=== PATIENT | female | born 1985 | race African-American/Black ===

== ENCOUNTER 2016-08-16 16:05 | Inpatient (IN) | payer OTHER ==
[~2016-08-16] VITALS: Ht 162.6 cm; Wt 85.0 kg
[2016-08-16] VITALS (21 sets, daily range): BP systolic 123–171; BP diastolic 58–98
[2016-08-16] MEDS ORDERED: VALT500T PO (16:34)
[2016-08-16] MEDS ORDERED: PRENTAB9 PO (16:34)
[2016-08-16 17:55] LABS: MEAN CORPUSCULAR HEMOGLOBIN 30.4 pg (27.0-33.0); MEAN CORPUSCULAR HGB CONC 33.4 g/dl (32.0-36.5); MEAN CORPUSCULAR VOLUME 91.2 fl (80.0-96.0); RED CELL DISTRIBUTION WIDTH 14.2 % (11.5-14.5); WHITE BLOOD COUNT 10.4 K/mm3 (4.0-10.0)
--- NOTE | 2016-08-16 20:30 | IPNPDOC ---
Text Note Date of Service The patient was seen on 08/16/16. NOTE Assumed care from WINIFRED Alvarez at 1930. Patient very uncomfortable, desiring epidural. Cat I FHRT, abnormal ctx pattern with one large/strong ctx every 7 min or so At last SCE, reported /-1. Just in room now, pt endorsed loss of fluid and has leakage consistent with SROM - clear/bloody. No check at this time. Will proceed with epidural and continue to evaluate ctx pattern. If does not normalize with the ROM and relaxation provided by epidural, will consider starting pitocin. Safe to proceed. Dr. Alena Lal MD VS,Raul, I+O VS, Raul, I+O Laboratory Tests 08/16/16 17:35 Red Blood Count 3.97 L, Mean Corpuscular Volume 91.2, Mean Corpuscular Hemoglobin 30.4, Mean Corpuscular Hemoglobin Concent 33.4, Red Cell Distribution Width 14.2 Vital Signs Date Time Temp Pulse Resp B/P (MAP) Pulse Ox O2 Delivery O2 Flow Rate FiO2 08/16/16 19:35 99.6 95 149/98 (115) 08/16/16 16:29 20 ALENA LAL MD Aug 16, 2016 20:30
[2016-08-16] MEDS ORDERED: FENTANYL 2MCG/ML ROPIVACAINE 0.2% IN 0.9% NACL 200ML IVBAG As Ordered ONE (20:47)
[2016-08-16] MEDS ORDERED: OXYTOCIN 30 UNITS IN 0.9% NaCl 500ML IV BAG (J2590) As Ordered ONE (20:48)
[2016-08-16 20:49] LABS: ALBUMIN 2.7 GM/DL (3.2-5.2); ALBUMIN/GLOBULIN RATIO 0.69 (1.00-1.93); ALKALINE PHOSPHATASE 255 U/L (45-117); ALT/SGPT 19 U/L (12-78); ANION GAP 4 MEQ/L (8-16); AST/SGOT 14 U/L (15-37); BILIRUBIN,TOTAL 0.2 MG/DL (0.2-1.0); BLOOD UREA NITROGEN 7 MG/DL (7-18); CARBON DIOXIDE LEVEL 27 MEQ/L (21-32); CHLORIDE LEVEL 107 MEQ/L (98-107); CREATININE FOR GFR 0.65 MG/DL (0.55-1.02); GLOMERULAR FILTRATION RATE > 60.0 (>60); GLUCOSE, FASTING 107 MG/DL (70-105); POTASSIUM SERUM 4.2 MEQ/L (3.5-5.1); SODIUM LEVEL 138 MEQ/L (136-145); TOTAL PROTEIN 6.6 GM/DL (6.4-8.2)
[2016-08-16] MEDS ORDERED: NALOXONE INJ 0.4 MG/1 ML VIAL (J2310) IV PRN (22:15)
[2016-08-16] MEDS ORDERED: LACTATED RINGER'S 1000 ML IV PRN (22:15)
[2016-08-16] MEDS ORDERED: FENTANYL/ROPIVACAINE/NACL BAG 200 ML EPIDURAL SCH (22:15)
[2016-08-16] MEDS ORDERED: EPIDURAL COMMENT XX SCH (22:15)
[2016-08-16] MEDS ORDERED: EPIDURAL/PCA KEYS XX PRN (22:15)
[2016-08-16] MEDS ORDERED: ePHEDrine SULFATE 25 MG/5 ML(5MG/ML) SYRINGE IV PRN (22:15)
[2016-08-16] MEDS ORDERED: ONDANSETRON 4MG/2ML VIAL (J2405) IV PRN (22:15)
[2016-08-16] MEDS ORDERED: REFRIGERATOR IV KEYS XX PRN (22:15)
[2016-08-16] MEDS ORDERED: diphenhydrAMINE INJ 50MG/ML VIAL (J1200) IV PRN (22:15)
--- NOTE | 2016-08-16 23:51 | IPNPDOC ---
Text Note Date of Service The patient was seen on 08/16/16. NOTE Patient now comfortable with epidural. Cat I FHRT until SCE when patient was on her back, then had 2 deep late decelerations which recovered completely with O2, lateral repositioning and 300ml LR bolus. SCE now 4/80/-2. Ctx q2min. IUPC placed since patient admitted 8hr ago and only 2cm of change. Still clear fluid. Will continue to monitor closely. If continued FHRT Cat I and ctx do not meet adequate MVUs, will begin low dose pitocin. Safe to proceed. Dr. Alena Lal MD VS,Raul, I+O VS, Raul I+O Laboratory Tests 08/16/16 17:35 Red Blood Count 3.97 L, Mean Corpuscular Volume 91.2, Mean Corpuscular Hemoglobin 30.4, Mean Corpuscular Hemoglobin Concent 33.4, Red Cell Distribution Width 14.2, Calcium Level 9.0, Aspartate Amino Transf (AST/SGOT) 14 L, Alanine Aminotransferase (ALT/SGPT) 19, Alkaline Phosphatase 255 H, Total Bilirubin 0.2, Total Protein 6.6, Albumin 2.7 L Vital Signs Date Time Temp Pulse Resp B/P (MAP) Pulse Ox O2 Delivery O2 Flow Rate FiO2 08/16/16 22:59 92 130/80 (97) 08/16/16 22:30 98.3 08/16/16 21:58 20 100 Non-RebreALENA King MD Aug 16, 2016 23:50
[2016-08-17] VITALS (13 sets, daily range): BP systolic 99–139; BP diastolic 50–87
[2016-08-17] MEDS ORDERED: OXYTOCIN DRIP 30 UNITS in APPROPRIATE DILUENT 1 EA IV SCH ×2
--- NOTE | 2016-08-17 01:06 | IPNPDOC ---
Text Note Date of Service The patient was seen on 08/17/16. NOTE Called to room by RN for late FHR decelerations and tachycardia. SCE: /-1. FSE placed. IUPC now shows meconium. amnioinfusion 500ml ordered. Patient has O2 on, left lateral position. With initiation of amnioinfusion, late decelerations seem so far to have resolved. tachycardia 170's continues, but patient is afebrile, so no formal dx of chorio yet. Good FHR variability still. Will continue to keep a close eye to tracing. Safe to proceed. Dr. Alena Lal MD VS,Raul, I+O VS, Raul, I+O Laboratory Tests 08/16/16 17:35 Red Blood Count 3.97 L, Mean Corpuscular Volume 91.2, Mean Corpuscular Hemoglobin 30.4, Mean Corpuscular Hemoglobin Concent 33.4, Red Cell Distribution Width 14.2, Calcium Level 9.0, Aspartate Amino Transf (AST/SGOT) 14 L, Alanine Aminotransferase (ALT/SGPT) 19, Alkaline Phosphatase 255 H, Total Bilirubin 0.2, Total Protein 6.6, Albumin 2.7 L Vital Signs Date Time Temp Pulse Resp B/P (MAP) Pulse Ox O2 Delivery O2 Flow Rate FiO2 08/16/16 23:22 98.5 76 123/58 (79) 08/16/16 21:58 20 100 Davina-ALENA Maynard MD Aug 17, 2016 01:06
--- NOTE | 2016-08-17 02:23 | IPNPDOC ---
Text Note Date of Service The patient was seen on 08/17/16. NOTE Continued Cat II tracing now with less variability, late decelerations with >50 % of ctx SCE . Patient counseled/consented for PLTCS for NRFHT. Consent form signed. All questions answered. 2g IV anceph and 500mg IV azithromycin for pre-op abx prophylaxis. Dr. Yeung called to attend delivery in the setting of meconium and NRFHT. Will proceed to OR when anesthesia and team are ready. Dr. Vanessa Lal MD MelroseAndre LIEBERMAN VS,Raul, I+O VS, Raul I+O Laboratory Tests 08/16/16 17:35 Red Blood Count 3.97 L, Mean Corpuscular Volume 91.2, Mean Corpuscular Hemoglobin 30.4, Mean Corpuscular Hemoglobin Concent 33.4, Red Cell Distribution Width 14.2, Calcium Level 9.0, Aspartate Amino Transf (AST/SGOT) 14 L, Alanine Aminotransferase (ALT/SGPT) 19, Alkaline Phosphatase 255 H, Total Bilirubin 0.2, Total Protein 6.6, Albumin 2.7 L Vital Signs Date Time Temp Pulse Resp B/P (MAP) Pulse Ox O2 Delivery O2 Flow Rate FiO2 08/17/16 01:51 99.6 97 18 99/50 (66) 08/16/16 21:58 100 VANESSA Gaona MD Aug 17, 2016 02:23
[2016-08-17] MEDS ORDERED: AZITHROMYCIN INJ 500 MG, VIAL MATE ADAPTER 1 EACH in D5W 250 ML IV ONE (02:30)
[2016-08-17] MEDS ORDERED: TERBUTALINE SULFATE 1 MG/ML VIAL (J3105) SC ONE (02:30)
[2016-08-17] MEDS ORDERED: BICITRA 30ML SOLN UDC PO ONE (02:30)
[2016-08-17] MEDS ORDERED: LIDOCAINE 2% INJ 100 MG/5 ML SDV (FOR ANES.) As Ordered ONE ×2 (02:58→03:53)
[2016-08-17] MEDS ORDERED: OXYTOCIN INJ 10 UNITS/ML VIAL (J2590) As Ordered ONE (03:00)
[2016-08-17] MEDS ORDERED: ONDANSETRON 4MG/2ML VIAL (J2405) As Ordered ONE (03:29)
[2016-08-17] MEDS ORDERED: KETOROLAC 60 MG/2 ML VIAL (J1885) As Ordered ONE (03:29)
[2016-08-17] MEDS ORDERED: MORPHINE PRES-FREE INJ 10 MG/10 ML VIAL (J2274) As Ordered ONE (03:34)
[2016-08-17 03:53] LABS: CORD GAS ABE V -5.1; CORD GAS HCO3 V 21.2 MEQ/L; CORD GAS O2 SAT V 57.2 %; CORD GAS PCO2 V 43.9 mmHg; CORD GAS PH V 7.301 UNITS; CORD GAS PO2 V 25.2 mmHg; CORD GAS SBC V 19.4 MEQ/L; CORD GAS TCO2 V 22.5 MEQ/L
[2016-08-17 03:54] LABS: CORD GAS ABE A -4.4; CORD GAS HCO3 A 22.7 MEQ/L; CORD GAS PCO2 A 49.6 mmHg; CORD GAS PH A 7.278 UNITS; CORD GAS PO2 A 28.6 mmHg; CORD GAS SBC A 20.1 MEQ/L; CORD GAS TCO2 A 24.2 MEQ/L
[2016-08-17] MEDS ORDERED: fentaNYL 100 MCG/2 ML INJECTION (J3010) As Ordered ONE (04:07)
[2016-08-17] MEDS ORDERED: ONDANSETRON 4MG/2ML VIAL (J2405) IV PRN ×2 (04:25→05:15)
[2016-08-17] MEDS ORDERED: METOCLOPRAMIDE INJ 10MG/2ML VIAL (J2765) IV PRN ×2 (04:25→05:15)
[2016-08-17] MEDS ORDERED: NALOXONE INJ 0.4 MG/1 ML VIAL (J2310) IV PRN ×2 (04:25)
[2016-08-17] MEDS ORDERED: NALBUPHINE HCL 10 MG/ML AMP (J2300) IV PRN (04:25)
[2016-08-17] MEDS: LR 1,000 ML IV SCH ×2 (04:39→20:15)
[2016-08-17] MEDS ORDERED: RHOGAM 300 MCG (1500 IU) INJ (J2790) IM SCH (04:45)
[2016-08-17] MEDS ORDERED: PERCOCET 5MG/325MG TAB PO PRN (04:45)
[2016-08-17] MEDS ORDERED: MEASLES,MUMPS,RUBELLA VACCINE INJ (MMR-II) (90707) SC SCH (04:45)
[2016-08-17] MEDS ORDERED: MEPERIDINE INJ 25 MG/ML VIAL (J2175) As Ordered ONE (04:45)
[2016-08-17] MEDS ORDERED: KETOROLAC 30 MG/ML VIAL (J1885) IV PRN (05:15)
[2016-08-17] MEDS ORDERED: fentaNYL 100 MCG/2 ML INJECTION (J3010) IV PRN (05:15)
[2016-08-17] MEDS ORDERED: MEPERIDINE INJ 25 MG/ML VIAL (J2175) IV ONE (05:15)
[2016-08-17] MEDS ORDERED: LR 1,000 ML IV SCH (05:15)
[2016-08-17] MEDS: PERCOCET 5MG/325MG TAB PO PRN ×3 (06:48→20:15)
[2016-08-17] MEDS: DOCUSATE SODIUM 100 MG CAP PO SCH ×2 (08:38→20:14)
[2016-08-17] MEDS: PRENATAL VITAMIN TAB PO SCH (08:40)
--- NOTE | 2016-08-17 09:05 | RO ---
DATE OF PROCEDURE: 08/17/2016 PREPROCEDURE DIAGNOSES: 1. Term intrauterine , active labor. 2. Non-reassuring heart tracing remote from delivery. POSTPROCEDURE DIAGNOSES: 1. Term intrauterine , active labor. 2. Non-reassuring heart tracing remote from delivery. 3. Meconium. SURGEON: Vanessa Lal MD MANAGER AUDIO: WINIFRED Em. CLINICAL SERVICE: Obstetrics. MATERIAL FORWARDED TO THE LAB FOR EXAMINATION: Cord gases: pH arterial 7.278, base excess -4.4, pH venous 7.301, base excess -5.1. INDICATION FOR OPERATION: Tere is a 31-year-old 1, now P1-0-0-1 who was admitted to labor and delivery for active labor. She developed a persistent category 2 heart rate tracing remote from delivery with heart rate decelerations with greater than 50% of the contractions and loss of variability over time. She was counseled for section. DESCRIPTION OF FINDINGS: Meconium noted on entry into the uterus. Female infant in cephalic presentation. 7 and 8. Weight 3000 grams or 6 pounds 10 ounces. Normal appearing uterus, fallopian tubes and ovaries. INFECTION CLASSIFICATION: 2. ESTIMATED BLOOD LOSS: 600 mL. IV FLUIDS: 1 liter of lactated ringers. URINE OUTPUT: 100 mL of clear yellow urine. OPERATION PERFORMED: Primary low transverse section. DESCRIPTION OF OPERATION: After obtaining informed consent, Tere was taken to the operating room. She had an epidural previously placed and she was comfortable. A Persaud catheter and bilateral sequential compression devices were in place. She was prepped and draped in normal sterile fashion in dorsal supine position with a left lateral tilt. She received 2 grams of IV Ancef and 500 mg of IV azithromycin prophylactically. Time out was performed to confirm patient name, date of , procedure and indication. The team was in agreement. Epidural anesthesia was found to be adequate using Allis clamp. Pfannenstiel skin incision was made with a scalpel and carried through to the underlying layer of fascia. The fascia was incised in the midline and the incision was extended laterally with Pope scissors. Superior and inferior aspects of the facial incision were grasped with Beverly clamps, elevated and the underlying rectus muscles were dissected off bluntly and sharply. Peritoneum was entered digitally and the rectus muscles were in the midline. Peritoneal incision was extended superiorly and inferiorly with good visualization of the bladder. Bladder blade was inserted. The vesicouterine peritoneum was identified, grasped with pickups and entered sharply with Metzenbaum scissors. The incision was extended laterally and the bladder flap was created digitally. Bladder blade was reinserted and the lower uterine segment was scored in a transverse fashion with a scalpel. Uterus was entered bluntly and the incision was extended with traction. Bladder blade was removed and the 's head was elevated to the level of the incision. Fundal pressure was applied and the head was delivered atraumatically in the OA position. Anterior shoulder, posterior shoulder and corpus were delivered without difficulty. Nose and mouth were suctioned with bulb suction and the cord was clamped times two and cut. The infant was handed off to the awaiting wood milling machine tender and team. Cord gases were obtained. Placenta was removed with traction on the cord and uterine massage and the uterus was exteriorized and cleared of all clot and debris. Uterine incision was repaired with #0 Vicryl suture in a running locking fashion and a second layer of #0 Monocryl suture was used to close the hysterotomy incision in an imbricating fashion. Uterine incision was inspected. Hemostasis was noted. Posterior cul-de-sac was irrigated and the uterus was returned to the abdomen. Gutters were cleared of all clot. Hemostasis noted. Peritoneum was closed using #3-0 Vicryl suture in a running fashion. Fascia was reapproximated using #0 Vicryl suture in a running fashion. Subcutaneous tissue was copiously irrigated. Marilia's fascia was reapproximated using #3-0 Vicryl suture in a running fashion in two layers. Skin edges were reapproximated using #4-0 Monocryl suture. Incision was cleaned using a wet lap and dried with a dry lap. Steri-Strips were applied in the usual fashion perpendicular to Pfannenstiel incision. Pressure dressing was applied over the top. Vagina was cleared of all blood clot without active bleeding noted. The fundus was firm at the umbilicus -1 cm. All counts were correct times two. Procedure was without complication. The patient tolerated the procedure well. She was taken to the recovery room on labor and delivery in stable condition. KATARINA
[2016-08-17] MEDS: KETOROLAC 30 MG/ML VIAL (J1885) IV SCH ×3 (10:00→22:43)
[2016-08-18 02:14] VITALS: BP 124/72
[2016-08-18] MEDS: KETOROLAC 30 MG/ML VIAL (J1885) IV SCH (03:54)
[2016-08-18] MEDS: PERCOCET 5MG/325MG TAB PO PRN ×3 (04:05→16:57)
[2016-08-18 05:36] VITALS: BP 132/63
[2016-08-18 07:31] LABS: MEAN CORPUSCULAR HEMOGLOBIN 30.5 pg (27.0-33.0); MEAN CORPUSCULAR HGB CONC 33.2 g/dl (32.0-36.5); MEAN CORPUSCULAR VOLUME 91.7 fl (80.0-96.0); RED CELL DISTRIBUTION WIDTH 14.4 % (11.5-14.5); WHITE BLOOD COUNT 14.3 K/mm3 (4.0-10.0)
[2016-08-18] MEDS: DOCUSATE SODIUM 100 MG CAP PO SCH ×2 (09:15→19:43)
[2016-08-18] MEDS: PRENATAL VITAMIN TAB PO SCH (09:16)
[2016-08-18 10:00] VITALS: BP 122/76
[2016-08-18] MEDS ORDERED: BACITRACIN OINT 30GM TOP PRN (10:45)
[2016-08-18] MEDS: IBUPROFEN 800 MG TAB PO SCH ×2 (12:45→19:44)
[2016-08-18 14:04] VITALS: BP 145/78
--- NOTE | 2016-08-18 17:07 | IPNPDOC ---
Progress Note Date of Service The patient was seen on 08/18/16 at 17:05. Progress Note Tere is a 31yo [id number] doing well on POD 1 s/p uncomplicated PLTCS for NRFHT remote from delivery. She has minimal pain. Breast feeding and formula feeding. Ambulating easily, no problems with voiding, tolerating regular diet. Denies f/c/n/v/SOB/CP. Vitals wnl, afebrile General: WDWN, resting comfortably Cardiac: S1S2 present, no murmurs Lungs: CTAB Abdomen: soft, appropriately tender, fundus firm at u-2cm, pfannensteil incision is clean/dry/intact with no erythema/induration/dehiscence Extremities: 1+ pitting edema of BLE Labs: pre-op H/H 12.1/36.3 post-op H/H 10.1/30.3 Assessment: Tere is a 31yo [id number] doing well on POD 1 s/p uncomplicated PLTCS for NRFHT remote from delivery. Vitals wnl, afebrile, exam benign. Appropriate change in H/H. Hemodynamically stable with no e/o infection. Plan: -Routine post-op care -percocet and motrin prn pain -regular diet -encourage breast feeding, ambulation and use of IS -possible discharge home tomorrow vs Sunday Dr. Alena Lal MD VS, I&O, 24H, Fishbone Vital Signs/I&O Vital Signs Date Time Temp Pulse Resp B/P (MAP) Pulse Ox O2 Delivery O2 Flow Rate FiO2 08/18/16 14:04 99.4 102 18 145/78 (100) 08/18/16 02:14 99 Room Air I&O- Last 24 Hours up to 6 AM 08/18/16 05:59 Intake Total 4050 ml Output Total 2150 ml Balance 1900 ml Laboratory Data CBC/BMP Laboratory Tests 08/18/16 06:55 Red Blood Count 3.31 L, Mean Corpuscular Volume 91.7, Mean Corpuscular Hemoglobin 30.5, Mean Corpuscular Hemoglobin Concent 33.2, Red Cell Distribution Width 14.4 ALENA LAL MD Aug 18, 2016 17:07
[2016-08-18 18:09] VITALS: BP 132/78
[2016-08-18 21:45] VITALS: BP 136/90
[2016-08-19] MEDS ORDERED: SIMETHICONE 80 MG CHEW TAB PO PRN (02:00)
[2016-08-19] MEDS: IBUPROFEN 800 MG TAB PO SCH (03:50)
[2016-08-19 06:04] VITALS: BP 128/60
[2016-08-19] MEDS: PERCOCET 5MG/325MG TAB PO PRN (07:55)
[2016-08-19] MEDS: DOCUSATE SODIUM 100 MG CAP PO SCH (07:55)
[2016-08-19] MEDS: PRENATAL VITAMIN TAB PO SCH (07:55)
[2016-08-19] MEDS ORDERED: IBUP-1114 PO (10:44)
[2016-08-19] MEDS ORDERED: OXYC1TAB23 PO ×2 (10:45→10:48)
--- NOTE | 2016-08-19 10:52 | IPNPDOC ---
Progress Note Date of Service The patient was seen on 08/19/16 at 10:50. Progress Note Tere is a 31yo [id number] doing well on POD 2 s/p uncomplicated PLTCS for NRFHT remote from delivery. She has minimal pain. Breast feeding and formula feeding. Ambulating easily, no problems with voiding, tolerating regular diet. Denies f/c/n/v/SOB/CP. Vitals wnl, afebrile General: WDWN, resting comfortably Cardiac: S1S2 present, no murmurs Lungs: CTAB Abdomen: soft, appropriately tender, fundus firm at u-2cm, pfannensteil incision is clean/dry/intact with no erythema/induration/dehiscence Extremities: 1+ pitting edema of BLE Labs: pre-op H/H 12.1/36.3 post-op H/H 10.1/30.3 Assessment: Tere is a 31yo [id number] doing well on POD 2 s/p uncomplicated PLTCS for NRFHT remote from delivery. Vitals wnl, afebrile, exam benign. Appropriate change in H/H. Hemodynamically stable with no e/o infection. Plan: -Discharge to home today with follow-up in clinic in 1 week for incision check -percocet and motrin prn pain -return precautions discussed at length: increasing pain/bleeding, fevers/chills , evidence of wound infection Dr. Alena Lal MD VS, I&O, 24H, Fishbone Vital Signs/I&O Vital Signs Date Time Temp Pulse Resp B/P (MAP) Pulse Ox O2 Delivery O2 Flow Rate FiO2 08/19/16 08:25 20 08/19/16 06:04 98.9 107 128/60 (82) 08/18/16 02:14 99 Room Air I&O- Last 24 Hours up to 6 AM 08/19/16 06:00 Intake Total 2400 ml Output Total 800 ml Balance 1600 ml ALENA LAL MD Aug 19, 2016 10:52
--- NOTE | 2016-08-19 10:56 | DS.PDOC ---
Discharge Summary General Date of Admission Aug 16, 2016 at 17:13 Date of Discharge Aug 19, 2016 Attending Physician: ALENA LAL MD Discharge Summary PROCEDURES PERFORMED DURING STAY: Primary low transverse section ADMITTING DIAGNOSES: 1. Active labor at term DISCHARGE DIAGNOSES: 1. Active labor at term 2. Development of non-reassuring heart tracing remote from delivery COMPLICATIONS/CHIEF COMPLAINT: LABOR. HISTORY OF PRESENT ILLNESS/HOSPITAL COURSE: Tere is a 31yo [id number] doing well on POD 2 s/p uncomplicated PLTCS for NRFHT remote from delivery. Benign post-op/post- course. Vitals wnl, afebrile, exam benign. Appropriate change in H/H. Hemodynamically stable with no e/o infection. DISCHARGE MEDICATIONS: Please see below. ALLERGIES: Please see below. PHYSICAL EXAMINATION ON DISCHARGE: Vitals wnl, afebrile General: WDWN, resting comfortably Cardiac: S1S2 present, no murmurs Lungs: CTAB Abdomen: soft, appropriately tender, fundus firm at u-2cm, pfannensteil incision is clean/dry/intact with no erythema/induration/dehiscence Extremities: 1+ pitting edema of BLE LABORATORY DATA: pre-op H/H 12.1/36.3 post-op H/H 10.1/30.3 ACTIVITY: As tolerated, vaginal rest for 6 weeks, no heavy lifting greater than weight of baby DIET: regular DISCHARGE PLAN/DISCHARGE INSTRUCTIONS: -Discharge to home today with follow-up in clinic in 1 week for incision check -percocet and motrin prn pain -return precautions discussed at length: increasing pain/bleeding, fevers/chills , evidence of wound infection DISCHARGE CONDITION: Stable TIME SPENT ON DISCHARGE: Greater than [address] Alena Lal MD Vital Signs/I&Os Vital Signs Date Time Temp Pulse Resp B/P (MAP) Pulse Ox O2 Delivery O2 Flow Rate FiO2 08/19/16 08:25 20 08/19/16 06:04 98.9 107 128/60 (82) 08/18/16 02:14 99 Room Air I&O- Last 24 Hours up to 6 AM 08/19/16 06:00 Intake Total 2400 ml Output Total 800 ml Balance 1600 ml Discharge Medications Scheduled Ibuprofen (Ibuprofen) 400 Mg Tab, 800 MG PO Q8H for PAIN, (Reported) Multivitamins/ ( 27-0.8 mg) 1 Tab Tab, 1 TAB PO DAILY, (Reported ) Scheduled PRN Oxycodone/Acetaminophen (Oxycodone/Acetaminophen 5-325 mg) 1 Tab Tab, 1 TAB PO Q4HP PRN for PAIN SCALE 1-5, (Reported) Oxycodone/Acetaminophen (Oxycodone/Acetaminophen 5-325 mg) 1 Tab Tab, 2 TAB PO Q4DP PRN for PAIN SCALE 6-10, (Reported) Allergies Coded Allergies: No Known Allergies (Unverified , 08/16/16) ALENA LAL MD Aug 19, 2016 10:56
== END 2016-08-19 12:30 | disposition home or self-care (01) | DRG 766 ==
LOC: M LDO 16:05 → M LDI 17:13 → M OBS 08-17 04:03
PROVIDERS: ADMIT Advanced Practice Midwife; ATTEND Obstetrics & Gynecology
PROC: 3E0E77Z Introduction of Electrolytic and Water Balance Substance into Products of Conception, Via Natural or Artificial Opening (ICD-10-PCS; 2016-08-17)
PROC: 10D00Z1 Extraction of Products of Conception, Low, Open Approach (ICD-10-PCS; principal; 2016-08-17 03:20)
DX: O48.0 Post-term pregnancy (principal); O77.0 Labor and delivery complicated by meconium in amniotic fluid; Z3A.40 40 weeks gestation of pregnancy; O76 Abnormality in fetal heart rate and rhythm complicating labor and delivery; Z37.0 Single live birth